=== PATIENT | male | born 1930 | race Caucasian/White ===

== ENCOUNTER 2016-11-10 14:08 | Emergency (ER) | payer MEDICARE ==
[2016-11-10 16:01] LABS: BASOPHILS 0 % (0-2); EOSINOPHILS 0.2 % (0-7); HEMATOCRIT 29.6 % (42.0-54.0); HEMOGLOBIN 9.4 g/dL (13.5-17.5); IMMATURE GRANULOCYTES 0.2 % (0-5); LYMPHOCYTES 34.6 % (15-50); MCH 30.5 pg (26.0-34.0); MCHC 31.8 g/dL (31.0-37.0); MCV 96.1 fL (80.0-100.0); MEAN PLATELET VOLUME 11.2 fL (7.4-10.4); MONOCYTES 5.4 % (2-11); NEUTROPHILS 59.6 % (40-80); PLATELET COUNT 169 10x3/uL (130-400); RBC 3.08 10x6/uL (4.20-6.10); RDW 16.7 % (11.5-14.5); WBC 4.9 10x3/uL (4.8-10.8)
[2016-11-10 16:08] LABS: APTT 28.3 SECONDS (22.8-39.4); INR 1.11 (0.85-1.17); PROTIME 14.1 SECONDS (11.6-15.0)
== END 2016-11-10 20:30 | disposition home or self-care (01) ==
LOC: D.ER 14:08
PROVIDERS: Emergency Medicine
DX: S01.81XA Laceration without foreign body of other part of head, initial encounter (principal); W01.0XXA Fall on same level from slipping, tripping and stumbling without subsequent striking against object, initial encounter; Y93.89 Activity, other specified; Y92.018 Other place in single-family (private) house as the place of occurrence of the external cause; I10 Essential (primary) hypertension